=== PATIENT | female | born 1985 | race Caucasian/White ===

== ENCOUNTER 2022-05-28 11:59 | Emergency (ER) | payer MEDICAID ==
[~2022-05-28] VITALS: Ht 167.6 cm; Wt 115.0 kg
[2022-05-28 12:05] VITALS: BP 115/48
[2022-05-28 16:08] LABS: BASOPHILS % 0.7 % (0.0-2.0); EOSINOPHILS % 1.1 % (0.0-5.0); HEMATOCRIT. 41.6 % (36.0-48.0); HEMOGLOBIN. 13.9 g/dL (12.0-16.0); MEAN CORPUSCULAR HEMOGLOBIN 28.4 pg (28.0-32.0); MEAN CORPUSCULAR VOLUME 85.2 fL (81.0-99.0); MEAN PLATELET VOLUME 11.3 fl (7.4-10.4); NEUTROPHILS % 63.2 % (40.0-76.0); PLATELET 200 x1000/uL (130-400); RED BLOOD CELL COUNT 4.88 mill/uL (4.2-5.4); RED CELL DISTRIBUTION WIDTH 14.2 % (11.6-14.6)
[2022-05-28 16:19] LABS: CHLORIDE 108 mEq/L (98-107)
[2022-05-28 17:57] LABS: CLARITY URINE CLEAR (CLEAR); COLOR URINE YELLOW (YELLOW); KETONES URINE NEGATIVE (NEGATIVE); LEUKOCYTE ESTERASE URINE NEGATIVE (NEGATIVE); NITRITE URINE NEGATIVE (NEGATIVE); OCCULT BLOOD URINE NEGATIVE (NEGATIVE); PROTEIN URINE NEGATIVE (NEGATIVE); SPECIFIC GRAVITY URINE 1.019 (1.005-1.030); UROBILINOGEN URINE 0.2 E.U./dL (0.2-1.0)
== END 2022-05-28 19:09 | disposition home or self-care (01) ==
LOC: ER 11:59
DX: R00.2 Palpitations (principal); R07.89 Other chest pain; R06.02 Shortness of breath; F41.9 Anxiety disorder, unspecified; K21.9 Gastro-esophageal reflux disease without esophagitis; Z98.890 Other specified postprocedural states
CPT/HCPCS: 36415; 80053; 81003; 82962; 85025; 93005; 99284

== ENCOUNTER 2022-05-30 16:42 | Emergency (ER) | payer MEDICAID ==
[~2022-05-30] VITALS: Ht 167.6 cm; Wt 114.0 kg
[2022-05-30 16:50] VITALS: BP 148/50
== END 2022-05-31 02:05 | disposition left against medical advice (07) ==
LOC: ER 16:42
DX: Z53.21 Procedure and treatment not carried out due to patient leaving prior to being seen by health care provider (principal); R07.9 Chest pain, unspecified; R42 Dizziness and giddiness
CPT/HCPCS: 93005

== ENCOUNTER 2022-06-01 20:29 | Emergency (ER) | payer MEDICAID ==
[~2022-06-01] VITALS: Ht 170.2 cm; Wt 96.0 kg
[2022-06-01 20:57] VITALS: BP 133/79
[2022-06-01 21:06] LABS: BASOPHILS % 0.3 % (0.0-2.0); EOSINOPHILS % 0.4 % (0.0-5.0); HEMOGLOBIN. 12.4 g/dL (12.0-16.0); LYMPHOCYTES % 28.5 % (20.0-50.0); MEAN CORPUSCULAR HEMOGLOBIN 28.4 pg (28.0-32.0); MEAN CORPUSCULAR VOLUME 84.7 fL (81.0-99.0); MEAN PLATELET VOLUME 10.7 fl (7.4-10.4); MONOCYTES % 4.6 % (2.0-8.0); NEUTROPHILS % 66.2 % (40.0-76.0); PLATELET 184 x1000/uL (130-400); RED BLOOD CELL COUNT 4.37 mill/uL (4.2-5.4); RED CELL DISTRIBUTION WIDTH 13.6 % (11.6-14.6)
[2022-06-01 21:13] LABS: CHLORIDE 106 mEq/L (98-107)
[2022-06-01 21:16] LABS: HCG SCREEN NEGATIVE
== END 2022-06-01 23:30 | disposition home or self-care (01) ==
LOC: ER 20:29
DX: R07.89 Other chest pain (principal); R00.2 Palpitations; R94.31 Abnormal electrocardiogram [ECG] [EKG]; R73.03 Prediabetes; Z88.1 Allergy status to other antibiotic agents; Z88.8 Allergy status to other drugs, medicaments and biological substances
CPT/HCPCS: 36415; 71045; 80053; 83880; 84484; 84703; 85025; 93005; 99285

== ENCOUNTER 2022-06-08 06:37 | Emergency (ER) | payer MEDICAID ==
[~2022-06-08] VITALS: Ht 170.2 cm; Wt 117.5 kg
[2022-06-08] MEDS ORDERED: IBUPROFEN 400MG TABLET PO ONE (08:00)
[2022-06-08 08:05] VITALS: BP 129/39
[2022-06-08] MEDS ORDERED: IBUP-2028 PO (09:08)
== END 2022-06-08 10:05 | disposition home or self-care (01) ==
LOC: ER 06:37
DX: M54.2 Cervicalgia (principal)
CPT/HCPCS: 99284

== ENCOUNTER 2022-06-17 08:56 | Emergency (ER) | payer MEDICAID ==
[~2022-06-17] VITALS: Ht 170.2 cm; Wt 88.0 kg
[~2022-06-17 08:56] MED LIST: IBUP-2028 PO
[2022-06-17] MEDS ORDERED: HYDROXYZINE 10 MG TABLET PO PRN (09:30)
[2022-06-17] MEDS ORDERED: HYDR-3735 MT (09:49)
[2022-06-17] MEDS ORDERED: PROT40 MT (09:49)
[2022-06-17 10:00] VITALS: BP 118/74
== END 2022-06-17 10:04 | disposition home or self-care (01) ==
LOC: ER 08:56
DX: F41.0 Panic disorder [episodic paroxysmal anxiety] (principal); F43.0 Acute stress reaction
CPT/HCPCS: 81025; 99283

== ENCOUNTER 2022-08-16 19:15 | Emergency (ER) | payer MEDICAID ==
[~2022-08-16] VITALS: Ht 170.2 cm; Wt 117.4 kg
[~2022-08-16 19:15] MED LIST changes: +PROT40 MT
[2022-08-16 20:04] VITALS: BP 118/68
[2022-08-17] MEDS ORDERED: CEFTRIAXONE SODIUM 500 MG/VIAL IM ONE (01:15)
[2022-08-17 01:46] LABS: CLARITY URINE CLOUDY (CLEAR); COLOR URINE YELLOW (YELLOW); KETONES URINE NEGATIVE (NEGATIVE); LEUKOCYTE ESTERASE URINE TRACE (NEGATIVE); NITRITE URINE NEGATIVE (NEGATIVE); OCCULT BLOOD URINE NEGATIVE (NEGATIVE); PH URINE 5.5 (4.5-8.0); PROTEIN URINE NEGATIVE (NEGATIVE); SPECIFIC GRAVITY URINE 1.034 (1.005-1.030)
[2022-08-17] MEDS ORDERED: DOXY150T5 PO (03:41)
[2022-08-17] MEDS ORDERED: METR-167 MT (03:41)
[2022-08-18 06:40] LABS: HIV SCREEN 4G Non Reactive (Non Reactive)
[2022-08-19 07:07] LABS: NEISSERIA GONORRHOEAE NAA Negative (Negative)
== END 2022-08-17 05:00 | disposition home or self-care (01) ==
LOC: ER 19:15
DX: N89.8 Other specified noninflammatory disorders of vagina (principal); T74.21XA Adult sexual abuse, confirmed, initial encounter; X58.XXXA Exposure to other specified factors, initial encounter; Z98.890 Other specified postprocedural states
CPT/HCPCS: 81003; 81025; 86592; 87210; 87389; 87491; 87591; 96372; 99283; J0696; Z7610

== ENCOUNTER 2022-10-11 22:26 | Emergency (ER) | payer SELFPAY ==
[~2022-10-11] VITALS: Ht 167.6 cm; Wt 115.6 kg
[~2022-10-11 22:26] MED LIST changes: +DOXY150T5 PO; +METR-167 MT
[2022-10-11 23:05] VITALS: BP 119/43
== END 2022-10-12 03:04 | disposition left against medical advice (07) ==
LOC: ER 22:26
DX: Z53.21 Procedure and treatment not carried out due to patient leaving prior to being seen by health care provider (principal)

== ENCOUNTER 2022-10-19 19:01 | Emergency (ER) | payer MEDICAID ==
[~2022-10-19] VITALS: Ht 167.6 cm; Wt 113.0 kg
[2022-10-19 19:07] VITALS: BP 130/81
== END 2022-10-19 20:47 | disposition home or self-care (01) ==
LOC: ER 19:01
DX: F41.9 Anxiety disorder, unspecified (principal); R73.9 Hyperglycemia, unspecified; Z71.89 Other specified counseling
CPT/HCPCS: 82962; 99281

== ENCOUNTER 2022-11-03 15:12 | Emergency (ER) | payer MEDICAID ==
[~2022-11-03] VITALS: Ht 167.6 cm; Wt 110.0 kg
[2022-11-03 15:16] VITALS: BP 132/69
[2022-11-03] MEDS ORDERED: TETANUS, DIPHTHERIA, PERTUSSIS VAC/PF 0.5ML (>10YR OLD) IM ONE ×2 (18:45→20:30)
[2022-11-03 19:29] LABS: CLARITY URINE CLEAR (CLEAR); COLOR URINE YELLOW (YELLOW); KETONES URINE TRACE (NEGATIVE); LEUKOCYTE ESTERASE URINE NEGATIVE (NEGATIVE); NITRITE URINE NEGATIVE (NEGATIVE); OCCULT BLOOD URINE NEGATIVE (NEGATIVE); PH URINE 5.5 (4.5-8.0); PROTEIN URINE NEGATIVE (NEGATIVE); SPECIFIC GRAVITY URINE 1.031 (1.005-1.030)
[2022-11-03] MEDS ORDERED: PHEN-815 MT (21:03)
== END 2022-11-03 21:19 | disposition home or self-care (01) ==
LOC: ER 15:25
DX: S01.312A Laceration without foreign body of left ear, initial encounter (principal); W18.39XA Other fall on same level, initial encounter; Y93.89 Activity, other specified; Y92.89 Other specified places as the place of occurrence of the external cause; Y99.8 Other external cause status; F41.9 Anxiety disorder, unspecified; Z98.890 Other specified postprocedural states; Z79.899 Other long term (current) drug therapy
CPT/HCPCS: 81003; 90471; 90715; 99283; Z7610

== ENCOUNTER 2024-12-26 00:31 | Emergency (ER) | payer MEDICAID ==
[~2024-12-26] VITALS: Ht 170.2 cm; Wt 113.0 kg
[~2024-12-26 00:31] MED LIST changes: -DOXY150T5 PO; +DOXY150T8 PO; +PHEN-815 MT
[2024-12-26 00:37] VITALS: TEMP 36.5; O2SAT 100
[2024-12-26 01:24] LABS: BASOPHILS % 0.6 % (0.0-2.0); EOSINOPHILS % 1.7 % (0.0-5.0); HEMATOCRIT. 37.5 % (36.0-48.0); HEMOGLOBIN. 12.3 g/dL (12.0-16.0); LYMPHOCYTES % 27.4 % (20.0-50.0); MEAN CORPUSCULAR HGB CONC 32.9 g/dL (31.0-37.0); MEAN CORPUSCULAR VOLUME 85.2 fL (81.0-99.0); MONOCYTES % 5.3 % (2.0-8.0); PLATELET 183 x1000/uL (130-400); RED CELL DISTRIBUTION WIDTH 14.1 % (11.6-14.6); WHITE BLOOD COUNT 11.3 x1000/uL (4.5-11.0)
[2024-12-26 01:41] LABS: CHLORIDE 104 mEq/L (98-107); POTASSIUM 3.7 mEq/L (3.5-5.1); SODIUM 138 mEq/L (136-145)
[2024-12-26 01:42] LABS: CALCIUM 8.5 mg/dL (8.7-10.4); CARBON DIOXIDE 26 mEq/L (21-32)
[2024-12-26 01:47] LABS: GLUCOSE 124 mg/dL (70-105); UREA NITROGEN BLOOD 15 mg/dL (9-23)
[2024-12-26 01:49] LABS: ALANINE AMINOTRANSFERASE 24 IU/L (10-49); ALBUMIN 3.6 g/dL (3.2-4.8); ASPARTATE AMINOTRANSFERASE 21 IU/L (<34); BILIRUBIN DIRECT < 0.1 mg/dL (<=3.0); BILIRUBIN TOTAL 0.3 mg/dL (0.1-1.0)
[2024-12-26 01:50] LABS: PROTEIN TOTAL 6.7 g/dL (6.0-8.3)
[2024-12-26 02:05] LABS: B-HCG QUANTITATIVE < 1 mIU/mL (<6)
[2024-12-26 02:35] LABS: CREATININE 0.9 mg/dL (0.6-1.0)
[2024-12-26] MEDS ORDERED: IBUP-2029 MT (04:03)
[2024-12-26 04:24] VITALS: BP 99/51; PULSE 65; RESP 14; O2SAT 98
== END 2024-12-26 04:34 | disposition home or self-care (01) ==
LOC: ER 00:31
DX: N83.201 Unspecified ovarian cyst, right side (principal); F41.9 Anxiety disorder, unspecified; Z88.5 Allergy status to narcotic agent; Z88.1 Allergy status to other antibiotic agents; Z79.899 Other long term (current) drug therapy; Z98.890 Other specified postprocedural states
CPT/HCPCS: 80076; 80048; 84702; 83690; 85025; 36415; 71045; 76856; 93005; 99285; Z7610 ×2; A4606

== ENCOUNTER 2025-03-21 03:51 | Emergency (ER) | payer MEDICAID ==
[~2025-03-21] VITALS: Ht 175.3 cm; Wt 100.0 kg
[~2025-03-21 03:51] MED LIST changes: +IBUP-2029 MT
[2025-03-21 03:53] VITALS: O2SAT 99
[2025-03-21] MEDS: LIDOCAINE 5% PATCH TOP SCH (04:00)
[2025-03-21 04:29] LABS: BASOPHILS % 0.6 % (0.0-2.0); EOSINOPHILS % 1.2 % (0.0-5.0); HEMATOCRIT. 40.1 % (36.0-48.0); HEMOGLOBIN. 13.2 g/dL (12.0-16.0); LYMPHOCYTES % 34.2 % (20.0-50.0); MEAN PLATELET VOLUME 10.8 fl (7.4-10.4); MONOCYTES % 5.7 % (2.0-8.0); NEUTROPHILS % 58.3 % (40.0-76.0); PLATELET 197 x1000/uL (130-400); RED BLOOD CELL COUNT 4.74 mill/uL (4.2-5.4); RED CELL DISTRIBUTION WIDTH 14.0 % (11.6-14.6)
[2025-03-21] MEDS: ACETAMINOPHEN 325MG TABLET PO ONE (04:31)
[2025-03-21 04:41] LABS: CREATININE 1.0 mg/dL (0.6-1.0)
[2025-03-21 04:42] LABS: UREA NITROGEN BLOOD 15 mg/dL (9-23)
[2025-03-21 04:43] LABS: TROPONIN I HIGH SENSITIVITY < 4 ng/L (3.0-34)
[2025-03-21 04:55] LABS: HCG SCREEN NEGATIVE
[2025-03-21] MEDS ORDERED: ACET-2708 MT (06:04)
[2025-03-21 06:07] VITALS: BP 149/63; PULSE 79; RESP 18; TEMP 36.6; O2SAT 99
== END 2025-03-21 06:17 | disposition home or self-care (01) ==
LOC: ER 03:51
DX: R07.89 Other chest pain (principal); R03.0 Elevated blood-pressure reading, without diagnosis of hypertension; F41.9 Anxiety disorder, unspecified; F12.90 Cannabis use, unspecified, uncomplicated; Z79.1 Long term (current) use of non-steroidal anti-inflammatories (NSAID); Z79.899 Other long term (current) drug therapy; Z88.1 Allergy status to other antibiotic agents; Z88.5 Allergy status to narcotic agent
CPT/HCPCS: 36415; 71045; 80048; 82962; 84484; 84703; 85025; 99284

== ENCOUNTER 2025-04-03 15:14 | Emergency (ER) | payer MEDICAID ==
[~2025-04-03] VITALS: Ht 170.2 cm; Wt 126.4 kg
[~2025-04-03 15:14] MED LIST changes: +ACET-2708 MT
[2025-04-03 15:16] VITALS: O2SAT 99
[2025-04-03 15:31] VITALS: BP 130/70; PULSE 91; RESP 18; TEMP 36.7; O2SAT 97
== END 2025-04-03 16:21 | disposition left against medical advice (07) ==
LOC: ER 15:14
DX: R09.81 Nasal congestion (principal); Z53.21 Procedure and treatment not carried out due to patient leaving prior to being seen by health care provider

== ENCOUNTER 2025-05-22 20:27 | Emergency (ER) | payer MEDICAID ==
[~2025-05-22] VITALS: Ht 170.2 cm; Wt 87.3 kg
[~2025-05-22 20:27] MED LIST changes: +IBUP-1455 MT; -IBUP-2029 MT
[2025-05-22 21:04] VITALS: O2SAT 100
[2025-05-22] MEDS ORDERED: ACETAMINOPHEN 325MG TABLET PO ONE (22:45)
[2025-05-22] MEDS ORDERED: GUAI120017 MT (23:56)
[2025-05-23 00:05] VITALS: BP 136/62; PULSE 83; RESP 16; TEMP 37.2; O2SAT 100
[2025-05-23] MEDS: KETOROLAC 15MG/ML VIAL IM ONE (00:09)
[2025-05-23 03:31] LABS: INFLUENZA TYPE A Presumptive Negative (Pres. Neg.)
[2025-05-23 03:32] LABS: INFLUENZA TYPE B Presumptive Negative (Pres. Neg.)
== END 2025-05-23 00:10 | disposition home or self-care (01) ==
LOC: ER 20:27
DX: B34.9 Viral infection, unspecified (principal); F41.9 Anxiety disorder, unspecified; F12.90 Cannabis use, unspecified, uncomplicated; Z79.1 Long term (current) use of non-steroidal anti-inflammatories (NSAID); Z79.899 Other long term (current) drug therapy; Z20.822 Contact with and (suspected) exposure to COVID-19; Z98.890 Other specified postprocedural states; Z88.1 Allergy status to other antibiotic agents; Z88.5 Allergy status to narcotic agent
CPT/HCPCS: 81025; 87804 ×2; 71045; 99284; 87426; J1885; Z7610